=== PATIENT | female | born 1950 ===

== ENCOUNTER 2017-02-26 08:54 | Day surgery (SDC) | payer MEDICARE ==
[2017-02-26] MEDS ORDERED: Lactated Ringer's 500 ML IV ONE (10:00)
[2017-02-26 10:08] VITALS: TEMP 97.5; O2SAT 100
[2017-02-26] MEDS ORDERED: Propofol 10 mg/ml Inj (20 ML) ONE (10:19)
[2017-02-26 11:02] VITALS: BP 100/58; PULSE 51; RESP 13
== END 2017-02-26 11:58 | disposition home or self-care (01) ==
LOC: H.ENDO 08:54
PROVIDERS: ATTEND Internal Medicine Gastroenterology
DX: Z12.11 Encounter for screening for malignant neoplasm of colon (principal); K64.0 First degree hemorrhoids; K29.50 Unspecified chronic gastritis without bleeding; K21.9 Gastro-esophageal reflux disease without esophagitis
CPT/HCPCS: 43239; 45378; 88305; J2001; J2704; J7120